=== PATIENT | male | born 1970 | race Caucasian/White ===

== ENCOUNTER 2017-03-13 22:26 | Emergency (ER) | payer MEDICARE, OTHER ==
[2017-03-14] MEDS: ACETAMINOPHEN 325 MG TAB PO (04:00)
== END 2017-03-14 03:41 | disposition home or self-care (01) ==
LOC: FTE 22:26
DX: J02.9 Acute pharyngitis, unspecified (principal)
CPT/HCPCS: 99283

== ENCOUNTER 2017-03-22 13:44 | Emergency (ER) | payer MEDICARE, OTHER | END 2017-03-22 17:44 | disposition home or self-care (01) | LOC: FTE 13:44 | DX: J02.9 Acute pharyngitis, unspecified (principal) | CPT/HCPCS: 99283 ==

== ENCOUNTER 2018-05-28 17:05 | Emergency (ER) | payer MEDICARE, OTHER | END 2018-05-28 21:19 | disposition home or self-care (01) | LOC: FTE 21:19 | DX: J06.9 Acute upper respiratory infection, unspecified (principal) | CPT/HCPCS: 87880; 99283 ==